=== PATIENT | female | born 1975 | race Caucasian/White ===

== ENCOUNTER 2016-11-16 07:56 | Emergency (ER) | payer OTHER ==
[2016-11-16 08:17] VITALS: BP 104/59
[2016-11-16] MEDS ORDERED: Lidocaine 1% MPF* 2 ML VIAL INJ ONE ×2 (08:22→08:23)
--- NOTE | 2016-11-16 09:03 | UC ---
Skin Complaint HPI - HPI Summary HPI Summary: Pt c/o painful abscess on right buttocks. Pt reports that pain began yesterday and has worsened over night. Pt erika hsitory of MRSA, fever and chills - History of Current Complaint Chief Complaint: UCSkin Time Seen by Provider: 11/16/16 08:10 Stated Complaint: ABSCESS Hx Obtained From: Patient Hx Last Menstrual Period: 10/27/16 ?: No Onset/Duration: Sudden Onset, Lasting Days - 2 Skin Exposure Onset/Duration: Days Ago - 1 Timing: Constant Onset Severity: Mild Current Severity: Moderate Location: Discrete - right buttock Character: Redness, Raised, Painful Aggravating: Touch Alleviating: Unknown Associated Signs & Symptoms: Positive: Tenderness - Allergy/Home Medications Allergies/Adverse Reactions: Allergies Allergy/AdvReac Type Severity Reaction Status Date / Time Latex Allergy Blisters Verified 11/16/16 08:11 Penicillins Allergy Hives Verified 11/16/16 08:11 Home Medications: Home Medications Cyclobenzaprine TAB* [Flexeril 10 MG TAB*] 10 mg PO BEDTIME PRN 11/16/16 [ History Confirmed 11/16/16] Ibuprofen [Advil] 800 mg PO ONCE PRN 11/16/16 [History Confirmed 11/16/16] Melatonin 10 mg PO BEDTIME PRN 11/16/16 [History Confirmed 11/16/16] Review of Systems Constitutional: Negative Skin: Other - swelling, tenderness, erythema, abscess right buttock Eyes: Negative ENT: Negative Respiratory: Negative Cardiovascular: Negative Gastrointestinal: Negative Genitourinary: Negative Motor: Negative Neurovascular: Negative Musculoskeletal: Myalgia - right buttock Neurological: Negative Psychological: Negative All Other Systems Reviewed And Are Negative: Yes PMH/Surg Hx/FS Hx/Imm Hx Previously Healthy: Yes Other GI/ History: 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 novasure. liver resection due to hemangionoma - Family History Known Family History: Positive: Cardiac Disease - Social History Occupation: Employed Full-time Lives: With Family Alcohol Use: None Substance Use Type: None Smoking Status (MU): Never Smoked Tobacco Have You Smoked in the Last Year: No Physical Exam Triage Information Reviewed: Yes Appearance: Well-Appearing Vital Signs: Initial Vital Signs Temp 98.6 F 11/16/16 08:12 Pulse 73 11/16/16 08:12 Resp 16 11/16/16 08:12 BP 104/59 11/16/16 08:12 Pulse Ox 99 11/16/16 08:12 Vital Signs Reviewed: Yes Eye Exam: Normal ENT Exam: Normal Respiratory Exam: Normal Cardiovascular Exam: Normal Abdominal Exam: Other - tender lymph node rigth groin Musculoskeletal Exam: Normal Neurological Exam: Normal Psychological Exam: Normal Skin Exam: Other - erythematous circular area, ~ 9 cm right lower lateral buttock, firm flucuant mass ~ 4 cm in diameter, Course/Dx - Differential Diagnoses - Skin Complaint Differential Diagnoses: Abscess, MRSA - Diagnoses Provider Diagnoses: abscess-right buttock. incision and drainage- scant amount of drainage. pt referrerd to surgeon Procedures - Incision and Drainage Site: right lateral lower buttock, scant amount of purulent drainage, Anesthesia: Local Instrument(s): Scalpel - 11, Discharge - Discharge Plan Condition: Stable Disposition: HOME Prescriptions: Sulfamethox/Trimethoprim DS* [Bactrim DS 800/160 TAB*] 1 tab PO Q12H #14 tab Patient Education Materials: Abscess (ED), Incision and Drainage (ED) Forms: *Work Release Referrals: Louis Estrada [Medical Doctor] - Clifton Jones [Primary Care Provider] - If Needed (Please follow up with your pCP or return to clinic as needed. Please follow up with the provider lsited for further evaluation. ) Additional Instructions: Please soak the affected area in an epsom salt and warm water soak. Please change the dressing twice daily or more often if bandage becomes soiled.
== END 2016-11-16 09:06 | disposition home or self-care (01) ==
LOC: UCCORT 07:56
DX: L02.31 Cutaneous abscess of buttock (principal); Z88.0 Allergy status to penicillin; Z91.040 Latex allergy status
CPT/HCPCS: 10060; 99212; G0463

== ENCOUNTER 2018-04-22 08:57 | Emergency (ER) | payer BC, OTHER ==
[2018-04-22 09:24] VITALS: BP 120/78
--- NOTE | 2018-04-22 10:20 | UC ---
Skin Complaint HPI - HPI Summary HPI Summary: Pt c/o finding a tick attached to right labia majora. Pt noticed it this morning and tried to remove it. She staets that she removed part of the tick but there is still a majority of the tick attached. Denies flu like symptoms, rash. - History of Current Complaint Chief Complaint: UCSkin Stated Complaint: TICK REMOVAL Hx Obtained From: Patient Hx Last Menstrual Period: ~03/24/18 ?: No Onset/Duration: Sudden Onset, Still Present Skin Exposure Onset/Duration: Hours Ago Timing: Constant Onset Severity: Mild Pain Intensity: 0 Location: Discrete Character: Raised, Painful Aggravating Factor(s): Touch Alleviating Factor(s): Unknown Associated Signs & Symptoms: Positive: Tenderness Related History: Insect Bite/Sting - Allergy/Home Medications Allergies/Adverse Reactions: Allergies Allergy/AdvReac Type Severity Reaction Status Date / Time Latex, Natural Rubber Allergy Blisters Verified 04/22/18 09:20 Penicillins Allergy Hives Verified 04/22/18 09:20 PMH/Surg Hx/FS Hx/Imm Hx Previously Healthy: Yes - Surgical History Surgical History: Yes Surgery Procedure, Year, and Place: esure. novasure. liver resection due to hemangionoma - Family History Known Family History: Positive: Cardiac Disease - Social History Occupation: Employed Full-time Lives: With Family Alcohol Use: None Substance Use Type: None Smoking Status (MU): Never Smoked Tobacco Have You Smoked in the Last Year: No Review of Systems All Other Systems Reviewed And Are Negative: Yes Constitutional: Positive: Negative Skin: Positive: Other - tick bite Eyes: Positive: Negative ENT: Positive: Negative Respiratory: Positive: Negative Cardiovascular: Positive: Negative Gastrointestinal: Positive: Negative Genitourinary: Positive: Negative Motor: Positive: Negative Neurovascular: Positive: Negative Musculoskeletal: Positive: Negative Neurological: Positive: Negative Psychological: Positive: Negative Is Patient Immunocompromised?: No Physical Exam Triage Information Reviewed: Yes Appearance: Well-Appearing Vital Signs: Initial Vital Signs Temp 97.9 F 04/22/18 09:19 Pulse 70 04/22/18 09:19 Resp 16 04/22/18 09:19 BP 120/78 04/22/18 09:19 Pulse Ox 100 04/22/18 09:19 Vital Signs Reviewed: Yes Eye Exam: Normal ENT Exam: Normal Dental Exam: Normal Neck exam: Normal Respiratory: Positive: No respiratory distress Musculoskeletal Exam: Normal Neurological Exam: Normal Psychological Exam: Normal Skin Exam: Other - partial tick strike plate attacher dto right mid labia majora. tick removed with splinter forceps. very small piece remained attached- majority removed. Pt informed Course/Dx - Differential Diagnoses - Skin Complaint Differential Diagnoses: Tick Born Illness - Diagnoses Provider Diagnosis: Tick bite Discharge - Sign-Out/Discharge Documenting (check all that apply): Patient Departure All imaging exams completed and their final reports reviewed: No Studies - Discharge Plan Condition: Stable Disposition: HOME Prescriptions: DOXYcycline CAP(*) [DOXYcycline 100MG CAP(*)] 200 mg PO ONCE #2 cap Patient Education Materials: Tick Bite (ED) Referrals: Viral Faust MD [Primary Care Provider] - If Needed - Billing Disposition and Condition Condition: STABLE Disposition: Home
== END 2018-04-22 10:29 | disposition home or self-care (01) ==
LOC: UCCORT 08:57
DX: S30.864A Insect bite (nonvenomous) of vagina and vulva, initial encounter (principal); Z91.040 Latex allergy status; Z88.0 Allergy status to penicillin; W57.XXXA Bitten or stung by nonvenomous insect and other nonvenomous arthropods, initial encounter; Y92.9 Unspecified place or not applicable
CPT/HCPCS: 99212; G0463